=== PATIENT | female | born 1965 | race Caucasian/White ===

== ENCOUNTER 2018-12-31 13:44 | Emergency (ER) | payer MEDICARE, MEDICAID ==
[2018-12-31 14:19] VITALS: BP 121/62
--- NOTE | 2018-12-31 14:41 | UC ---
Abdominal Pain Female HPI - HPI Summary HPI Summary: Pt presents with c/o gradual onset of generalized abdominal pain that is intermittent X 10 days. Pt states that has umbilical hernia , has skin yeast infection in umbilicus, and under large abdominal pannus. Pt has antifungal medication but has not used medication in days. pt reports that she has been having dry heaves daily, has been tryin gto lose weight over the last 6 months and has discontinued checking her glucose levels per her PCP. Pt denies, increased thirst or increase frequency in urination. Pt states that she has not had a colonoscopy, and that she feels as though she is not emptying her bowels with BMs. Pt denies constipation, has occasional diarrhea and also has decreased appetite. - History of Current Complaint Chief Complaint: UCAbdominalPain Stated Complaint: UPSET STOMACH Time Seen by Provider: 12/31/18 14:14 Hx Obtained From: Patient ?: No Onset/Duration: Gradual Onset, Lasting Days, Still Present Timing: Intermittent Episodes Lasting: Severity Initially: Mild Severity Currently: Moderate Pain Intensity: 9 Location: Diffuse Radiates: No Character: Aching, Colicy, Dull Aggravating Factor(s): Other: - palpation, Associated Signs and Symptoms: Positive: Decreased Appetite, Nausea, Diarrhea - Risk Factors Ectopic Risk Factor: Negative Ovarian Torsion Risk Factor: Negative Allergies/Adverse Reactions: Allergies Allergy/AdvReac Type Severity Reaction Status Date / Time clotrimazole [From Lotrimin] Allergy Hives Verified 12/31/18 14:20 Home Medications: Home Medications Allopurinol [Zyloprim 300 MG TAB] 300 mg PO DAILY 12/31/18 [History Confirmed ] Cetirizine HCl [Zyrtec] 10 mg PO DAILY 12/31/18 [History Confirmed 12/31/18] Docusate Sodium [Colace] 100 mg PO BID 12/31/18 [History Confirmed 12/31/18] Gemfibrozil TAB* [Lopid TAB*] 800 mg PO BID 12/31/18 [History Confirmed ] Guaifenesin/Pseudoephedrne HCl [Mucinex D ER 600-60 mg Tablet] 2 each PO BID [History Confirmed 12/31/18] Hydralazine HCl 1 - 2 tab PO DAILY 12/31/18 [History Confirmed 12/31/18] Hydrocodone/Acetaminophen [Hydrocodone/Acetaminophen 5-325 mg] 1 - 2 tab PO Q4HR 12/31/18 [History Confirmed 12/31/18] Nadolol [Corgard] 20 mg PO DAILY 12/31/18 [History Confirmed 12/31/18] Nystatin OINT* 1 applic TOPICAL BID 12/31/18 [History Confirmed 12/31/18] Omeprazole 40 mg PO BID 12/31/18 [History Confirmed 12/31/18] Pregabalin CAP(*) [Lyrica CAP(*)] 300 mg PO BID 12/31/18 [History Confirmed ] SUMAtriptan succinate [Imitrex] 100 mg PO SEE INSTRUCTIONS 12/31/18 [History Confirmed 12/31/18] Simvastatin [Zocor] 40 mg PO DAILY 12/31/18 [History Confirmed 12/31/18] Tizanidine HCl 8 mg PO QID 12/31/18 [History Confirmed 12/31/18] Venlafaxine ER (NF) [Effexor ER (NF)] 150 mg PO BID 12/31/18 [History Confirmed 12/31/18] buPROPion HCl [Bupropion HCl ER] 1.5 tab PO TID 12/31/18 [History Confirmed ] glipiZIDE [Glipizide] 10 mg PO BID 12/31/18 [History Confirmed 12/31/18] PMH/Surg Hx/FS Hx/Imm Hx Previously Healthy: No Endocrine History: Diabetes - Surgical History Surgical History: Yes Surgery Procedure, Year, and Place: tubal ligation - Family History Known Family History: Positive: Cardiac Disease - Social History Occupation: Unemployed Lives: Alone Alcohol Use: None Substance Use Type: None Smoking Status (MU): Never Smoked Tobacco Have You Smoked in the Last Year: No - Immunization History Vaccination Up to Date: No Review of Systems All Other Systems Reviewed And Are Negative: Yes Constitutional: Positive: Fever - feels hot occasionally, Chills, Fatigue Skin: Positive: Negative Eyes: Positive: Negative ENT: Positive: Negative Respiratory: Positive: Negative Cardiovascular: Positive: Negative Gastrointestinal: Positive: Abdominal Pain, Diarrhea, Nausea Genitourinary: Positive: Negative Motor: Positive: Negative Neurovascular: Positive: Negative Musculoskeletal: Positive: Negative Neurological: Positive: Negative Psychological: Positive: Negative Is Patient Immunocompromised?: No Physical Exam Triage Information Reviewed: Yes Completion Of Physical Exam Limited Due To: Other - pt has lmited mobility and was unable to get on exam table. Appearance: Obese Vital Signs: Initial Vital Signs Temp 97.3 F 12/31/18 14:08 Pulse 74 12/31/18 14:08 Resp 16 12/31/18 14:08 BP 121/62 12/31/18 14:08 Pulse Ox 98 12/31/18 14:08 Vital Signs Reviewed: Yes Eye Exam: Normal ENT Exam: Normal ENT: Positive: Hearing grossly normal Dental Exam: Other - missing teeth Neck exam: Normal Respiratory Exam: Normal Cardiovascular Exam: Normal Abdominal Exam: Other - generalized tenderness, umbilical hernia appreciated, skin, pale, pink, hernia not discolored or stranguated, pt has mild, erythematous, excoriated skin odiferous skin presumably yeast in umbilical area. pt states that she knows she has yeast infection in "bellybutton" but has not been using antifungal medication. Abdomen Description: Positive: Hernia @ - umbilicus Bowel Sounds: Positive: Present Musculoskeletal Exam: Normal Neurological Exam: Normal Psychological Exam: Normal Skin Exam: Other - yeast infection in umbilicus Abd Pain Female Course/Dx - Course Course Of Treatment: Pt was instructed to follow up with PCP as soon as possible. Pt was also instructed to go to ER if symptoms do not improve or they worsen. Pt verbalized understanding and agreed to plan of care. - Differential Dx/Diagnosis Differential Diagnosis: Irritable Bowel Syndrome, Other - abdominal pain Provider Diagnosis: Abdominal pain Discharge - Sign-Out/Discharge Documenting (check all that apply): Patient Departure All imaging exams completed and their final reports reviewed: No Studies - Discharge Plan Condition: Stable Disposition: HOME Patient Education Materials: Abdominal Pain (ED) Referrals: Shannen Best MD [Primary Care Provider] - As Soon As Possible Additional Instructions: PLEASE FOLLOW UP WITH YOUR PCP SOON POSSIBLE. IF YOUR SYMPTOMS WORSEN, PLEASE SEEK CARE AT THE CLOSEST EMERGENCY ROOM IMMEDIATELY. - Billing Disposition and Condition Condition: STABLE Disposition: Home
== END 2018-12-31 14:52 | disposition home or self-care (01) ==
LOC: UCCORT 13:44
DX: R10.84 Generalized abdominal pain (principal); E11.9 Type 2 diabetes mellitus without complications; Z79.84 Long term (current) use of oral hypoglycemic drugs
CPT/HCPCS: 36415; 86703; 99212; G0463